=== PATIENT | female | born 1960 | race Caucasian/White ===

== ENCOUNTER 2017-11-09 10:09 | Emergency (ER) | payer MEDICARE, OTHER ==
[~2017-11-09] VITALS: Ht 162.6 cm; Wt 7.7 kg
[~2017-11-09 10:09] MED LIST: BENAZEPRIL HYDR20 M1 PO; BENAZEPRIL HYDR40 M1 PO; HYDROCHLOROTH12.5 M2 PO; LIPI10 PO
[2017-11-09 10:17] VITALS: Ht 162.6 cm; Wt 7.7 kg
[2017-11-09 13:30] VITALS: BP 116/68
== END 2017-11-09 13:31 | disposition home or self-care (01) ==
LOC: ED 10:09
DX: N76.4 Abscess of vulva (principal)
CPT/HCPCS: 90715

== ENCOUNTER 2018-01-17 18:39 | Emergency (ER) | payer OTHER ==
[~2018-01-17] VITALS: Ht 170.2 cm; Wt 84.4 kg
[2018-01-17 18:46] VITALS: Ht 170.2 cm; Wt 84.4 kg
[2018-01-17 20:46] LABS: BASOPHIL % 1.1 % (0-2); PLATELET COUNT 228 x10^3mcL (130-400)
[2018-01-17 21:17] LABS: BILIRUBIN TOTAL 0.3 mg/dL (0.20-1.00); CARBON DIOXIDE 27.8 mmol/L (21-32); CHLORIDE SERUM 104 mmol/L (98-107); POTASSIUM SERUM 3.9 mmol/L (3.5-5.1); SODIUM SERUM 142 mmol/L (136-145); TOTAL PROTEIN, SERUM 7.5 g/dL (6.4-8.2)
[2018-01-17 21:38] LABS: ALBUMIN 3.7 g/dL (3.4-5.0); ALKALINE PHOSPHATASE 74 U/L (46-116); ALT/SGPT 15 U/L (14-59); AMYLASE 49 U/L (25-115); AST/SGOT 14 U/L (15-37); CALCIUM 8.7 mg/dL (8.5-10.1); CREATININE SERUM 0.7 mg/dL (0.6-1.0); GFR1 > 60 mL/min; GLUCOSE SERUM 100 mg/dL (74-106); LIPASE 183 IU/L (73-393)
[2018-01-17 23:28] VITALS: BP 116/75
== END 2018-01-17 23:28 | disposition home or self-care (01) ==
LOC: ED 18:39
PROVIDERS: Emergency Medicine
DX: K57.92 Diverticulitis of intestine, part unspecified, without perforation or abscess without bleeding (principal); I10 Essential (primary) hypertension
CPT/HCPCS: 82962; 83880; J7030

== ENCOUNTER 2018-05-10 11:19 | Emergency (ER) | payer OTHER ==
[~2018-05-10] VITALS: Ht 162.6 cm; Wt 85.3 kg
[2018-05-10 11:25] VITALS: BP 137/98; Ht 162.6 cm; Wt 85.3 kg
== END 2018-05-10 14:40 | disposition home or self-care (01) ==
LOC: ED 11:19
DX: M25.562 Pain in left knee (principal)

== ENCOUNTER 2019-03-08 17:52 | Emergency (ER) | payer OTHER, MEDICAID | END 2019-03-08 21:52 | disposition home or self-care (01) | LOC: ED 17:52 ==

== ENCOUNTER 2019-06-04 10:05 | Emergency (ER) | payer OTHER, MEDICAID ==
[~2019-06-04] VITALS: Ht 162.6 cm; Wt 91.2 kg
[2019-06-04 10:08] VITALS: Ht 162.6 cm; Wt 91.2 kg
[2019-06-04 12:03] VITALS: BP 108/74
== END 2019-06-04 12:03 | disposition home or self-care (01) ==
LOC: ED 10:05
DX: B34.9 Viral infection, unspecified (principal); I10 Essential (primary) hypertension
CPT/HCPCS: J1885